=== PATIENT | female | born 1960 | race Caucasian/White ===

== ENCOUNTER 2019-10-25 14:37 | Outpatient (CLI) | payer BC ==
[2019-10-25 15:38] LABS: eGFR (Non-African) > 60
== END 2019-10-25 14:42 ==
LOC: LAB 14:37
PROVIDERS: ATTEND Orthopaedic Surgery Foot and Ankle Surgery
DX: M76.62 Achilles tendinitis, left leg (principal); M77.32 Calcaneal spur, left foot
CPT/HCPCS: 36415; 80048; 83036